=== PATIENT | female | born 1950 | race Caucasian/White ===

== ENCOUNTER → 2017-07-12 | Outpatient (CLI) | payer OTHER ==
[~2017-07-12] MED LIST: ADULT LOW DOSE81 MG PO; COMPAZINE10 M1 PO; NOHOMEMEDICATIONS; PLAVIX 75 MG TA75 MG PO; ZOCOR 20 MG TAB20 M1 PO
[2017-07-12 16:47] LABS: CALCIUM 7.9 mg/dL (8.5-10.1); CREATININE 0.8 mg/dL (0.6-1.0); POTASSIUM 3.9 mmol/L (3.5-5.1)
== END ==
LOC: CAT 15:32 → LABMALL 15:32
PROVIDERS: Internal Medicine
DX: J43.2 Centrilobular emphysema (principal)

== ENCOUNTER → 2020-08-06 | Outpatient (CLI) | payer OTHER | LOC: SJCVC 13:45 | PROVIDERS: ATTEND Internal Medicine | DX: I49.8 Other specified cardiac arrhythmias (principal); R93.1 Abnormal findings on diagnostic imaging of heart and coronary circulation; R06.02 Shortness of breath; E78.5 Hyperlipidemia, unspecified; I34.1 Nonrheumatic mitral (valve) prolapse; R06.09 Other forms of dyspnea; K21.9 Gastro-esophageal reflux disease without esophagitis; F17.201 Nicotine dependence, unspecified, in remission; Z79.899 Other long term (current) drug therapy; Z88.8 Allergy status to other drugs, medicaments and biological substances ==

== ENCOUNTER → 2020-08-30 | Outpatient (CLI) | payer OTHER | LOC: SJCVCIMAG 09:31 | PROVIDERS: ATTEND Internal Medicine | DX: I49.8 Other specified cardiac arrhythmias (principal); R00.0 Tachycardia, unspecified; R93.1 Abnormal findings on diagnostic imaging of heart and coronary circulation; R06.00 Dyspnea, unspecified; I25.10 Atherosclerotic heart disease of native coronary artery without angina pectoris; Z87.891 Personal history of nicotine dependence; R42 Dizziness and giddiness; R11.0 Nausea ==

== ENCOUNTER → 2020-09-15 | Outpatient (CLI) | payer OTHER | LOC: RAD 11:03 | PROVIDERS: ATTEND Internal Medicine | DX: R06.00 Dyspnea, unspecified (principal) ==

== ENCOUNTER → 2020-10-19 | Outpatient (CLI) | payer OTHER | LOC: CAT 11:15 | PROVIDERS: ATTEND Internal Medicine | DX: Z12.2 Encounter for screening for malignant neoplasm of respiratory organs (principal); M47.814 Spondylosis without myelopathy or radiculopathy, thoracic region; Z87.891 Personal history of nicotine dependence ==